=== PATIENT | male | born 1960 ===

== ENCOUNTER 2017-04-22 03:50 | Outpatient (CLI) | payer BC | END 2017-04-22 03:51 | disposition home or self-care (01) | LOC: BICRAD 03:50 | PROVIDERS: ATTEND Chiropractor | DX: R05 Cough (principal); J06.9 Acute upper respiratory infection, unspecified | CPT/HCPCS: 71020 ==

== ENCOUNTER 2021-11-28 17:30 | Outpatient (CLI) | payer BC | END 2021-11-28 17:31 | disposition home or self-care (01) | LOC: SLEEPLAB 17:30 | PROVIDERS: ATTEND Internal Medicine | DX: G47.33 Obstructive sleep apnea (adult) (pediatric) (principal); R06.83 Snoring; G47.00 Insomnia, unspecified; E11.9 Type 2 diabetes mellitus without complications | CPT/HCPCS: 95800 ==

== ENCOUNTER 2022-06-22 22:04 | Observation (INO) | payer BC ==
[2022-06-22 23:13] LABS: #Basophils 0.1 thou/uL (0.0-0.2); #Eosinphils 0.3 thou/uL (0.0-0.7); #Lymphocytes 2.8 thou/uL (1.20-3.40); #Monocytes 1.1 thou/uL (0.11-0.59); #Neutrophils 9.2 thou/uL (1.40-6.50); %Basophils 0.5 % (0.0-1.0); %Eosinophils 2.5 % (0.0-10.0); %Lymphocytes 20.9 % (21.0-51.0); %Monocytes 7.9 % (0.0-10.0); %Neutrophils 68.2 % (42.0-75.0); Mean Corpuscular HGB CONC 33.7 g/dL (32.0-36.0); Mean Platelet Volume 8.6 fL (7.4-10.4); Platelet Count 235 10x3/uL (130-400); RBC Distribution Width 11.8 % (11.5-14.5); Red Blood Cell (RBC) Count 5.17 mill/uL (4.70-6.10); White Blood Cell (WBC) Count 13.4 10x3/uL (4.8-10.8)
[2022-06-22 23:38] LABS: ALT (SGPT) 35 U/L (8-55); AST (SGOT) 19 U/L (5-34); Albumin 4.6 g/dL (3.4-4.8); Alkaline Phosphatase 103 U/L (40-110); Anion Gap 14 mmol/L (10-20); BUN (Urea Nitrogen) 15 mg/dL (8.4-25.7); Bilirubin, Total 0.6 mg/dL (0.2-1.2); Calc. Creatinine Clearance 0 mL/min (70-130); Calcium 9.8 mg/dL (7.8-10.44); Carbon Dioxide 26 mmol/L (23-31); Chloride 102 mmol/L (98-107); Estimated GFR 55; Globulin 3.1 g/dL (2.4-3.5); Glucose 126 mg/dL (80-115); Lipase 16 U/L (8-78); Potassium 4.4 mmol/L (3.5-5.1); Protein, Total 7.7 g/dL (5.8-8.1); Sodium 138 mmol/L (136-145)
[2022-06-22 23:45] LABS: Bilirubin Negative (Negative); Blood, Urine Negative (Negative); Clarity Clear (Clear); Glucose, Urine (Dipstick) Normal (Negative); Ketone, Urine Negative (Negative); Leukocyte Negative Leu/uL (Negative); Nitrite Negative (Negative); Protein, Urine (Dipstick) Negative (Neg-Trace); Specific Gravity, Urine 1.019 (1.002-1.036); Urobilinogen Normal mg/dL (Less than 2)
[2022-06-23] MEDS ORDERED: Piperacillin/Tazobactam 3.375 GM VIAL ONE (00:32)
[2022-06-23] MEDS ORDERED: Ondansetron PF 4 MG/2 ML Vial ONE ×2 (00:32→13:26)
[2022-06-23] MEDS ORDERED: Morphine 4 MG/ML VIAL ONE (00:37)
[2022-06-23] MEDS ORDERED: Morphine 4 MG/ML VIAL SLOW IVP PRN (03:21)
[2022-06-23] MEDS: Piperacillin/Tazobactam 3.375 GM in Sodium Chloride 0.9% 100 ML IVPB SCH ×2 (05:39→12:37)
[2022-06-23 06:47] VITALS: BMI 35.4
[2022-06-23] MEDS ORDERED: D5 1/2 NS w/20 mEq KCL 1,000 ML IV SCH (11:15)
[2022-06-23] MEDS ORDERED: fentaNYL PF 100 MCG/2 ML SYRINGE ONE (12:34)
[2022-06-23] MEDS ORDERED: Iopamidol 30 ML ONE (12:40)
[2022-06-23] MEDS ORDERED: Bupivacaine/Epinephrine 0.25% 30 ML VIAL ONE (12:40)
[2022-06-23] MEDS ORDERED: HYDROmorphone 0.5 MG/0.5 ML SYRINGE ONE (13:25)
[2022-06-23] MEDS ORDERED: Glycopyrrolate 0.2 MG/ML 5 ML SYRINGE ONE (13:26)
[2022-06-23] MEDS ORDERED: NEOSTIGMINE 3 MG/3 ML SYR 3 MG/3 ML SYRINGE ONE (13:26)
[2022-06-23] MEDS ORDERED: Lidocaine 1% PF 5 ML VIAL ONE (13:26)
[2022-06-23] MEDS ORDERED: Dexamethasone 20 MG/5 ML VIAL ONE (13:26)
[2022-06-23] MEDS ORDERED: PROPOFOL 200 MG/20 ML VIAL ONE (13:26)
[2022-06-23] MEDS ORDERED: Rocuronium Bromide 10 MG/ML (10ML VIAL) ONE (13:26)
[2022-06-23] MEDS ORDERED: HYDROcodone/Acetaminophen 5/325 mg Tablet PO PRN ×2 (15:08→15:10)
[2022-06-23] MEDS ORDERED: HYDROmorphone 0.5 MG/0.5 ML SYRINGE SLOW IVP PRN (15:10)
[2022-06-23] MEDS ORDERED: Ondansetron HCl/PF 4 MG/2 ML Vial IVP PRN (15:11)
[2022-06-23] MEDS ORDERED: Ipratropium/Albuterol 3 ML NEB NEB PRN (15:11)
[2022-06-23] MEDS ORDERED: Promethazine HCl 25 MG/ML VIAL IM PRN (15:11)
[2022-06-23] MEDS ORDERED: Ketorolac Tromethamine 30 MG/ML VIAL IVP SCH (18:00)
[2022-06-23 23:42] VITALS: BP 132/78; TEMP 98.4
[2022-06-24] MEDS ORDERED: metFORMIN 850 MG TAB PO SCH (08:00)
[2022-06-24] MEDS ORDERED: LATANOPROSTENE BUNOD R EYE SCH (09:00)
== END 2022-06-23 19:38 | disposition home or self-care (01) ==
LOC: ERS 22:04 → SURG B 06-23 01:21
PROVIDERS: ADMIT Surgery; ATTEND Surgery
PROC: 0FT44ZZ Resection of Gallbladder, Percutaneous Endoscopic Approach (ICD-10-PCS; principal; 2022-06-23)
PROC: BF101ZZ Fluoroscopy of Bile Ducts using Low Osmolar Contrast (ICD-10-PCS; 2022-06-23)
DX: K80.00 Calculus of gallbladder with acute cholecystitis without obstruction (principal); K82.A1 Gangrene of gallbladder in cholecystitis; E11.9 Type 2 diabetes mellitus without complications; F17.290 Nicotine dependence, other tobacco product, uncomplicated; Z79.2 Long term (current) use of antibiotics; Z79.84 Long term (current) use of oral hypoglycemic drugs; Z20.822 Contact with and (suspected) exposure to COVID-19
CPT/HCPCS: 36415; 47532; 76705; 80053; 81003; 83690; 84484; 85025; 87086; 88304; 93005; 96365; 96375; 96376; C1713; C1889; G0378; J1100; J1170; J1885; J2270; J2405; J2543; J2704; J3480; J3490; Q9967; U0003; U0005